=== PATIENT | male | born 1970 | race Asian ===

== ENCOUNTER 2019-12-11 11:30 | Emergency (ER) | payer OTHER ==
[~2019-12-11] VITALS: Ht 165.1 cm; Wt 56.8 kg
[2019-12-11] MEDS: SODIUM CHLORIDE 0.9% 1,000 ML IV ONE (12:20)
[2019-12-11 12:36] LABS: BASOPHILS % (AUTO) 0.6 % (0.0-2.0); EOSINOPHILS % (AUTO) 1.3 % (1.0-6.0); HEMATOCRIT 47.8 % (41-53); HEMOGLOBIN 16.1 g/dL (13.5-17.5); LYMPHOCYTES # (AUTO) 2.1 K/uL (1.0-4.8); LYMPHOCYTES % (AUTO) 24.6 % (22.0-44.0); MEAN CORPUSCULAR HEMOGLOBIN 30.9 pg (26.0-34.0); MEAN CORPUSCULAR HGB CONC 33.6 G/dL (31.0-37.0); MEAN CORPUSCULAR VOLUME 92 fL (80-100); MONOCYTES # (AUTO) 0.5 K/uL (0.1-1.0); MONOCYTES % (AUTO) 6.3 % (2.0-9.0); NEUTROPHILS # (AUTO) 5.7 K/uL (1.8-7.7); NEUTROPHILS % (AUTO) 67.2 % (40.0-70.0); PLATELET COUNT (AUTO) 269 K/uL (150-450); RED CELL DISTRIBUTION WIDTH 13.8 % (11.5-14.5)
[2019-12-11 12:42] LABS: CALCIUM, TOTAL 9.9 mg/dL (8.8-10.5); CREATININE 1.58 mg/dL (0.60-1.30); POTASSIUM 4.7 mmol/L (3.5-5.1)
[2019-12-11 12:48] LABS: ALBUMIN 4.4 g/dL (3.4-5.0); TOTAL PROTEIN, SERUM 8.8 g/dL (6.4-8.2)
[2019-12-11 13:24] VITALS: BP 130/67
== END 2019-12-11 13:36 | disposition home or self-care (01) ==
LOC: EMS 11:32
DX: R11.2 Nausea with vomiting, unspecified (principal); F20.9 Schizophrenia, unspecified; F17.210 Nicotine dependence, cigarettes, uncomplicated
CPT/HCPCS: 36415; 80053; 82962; 83690; 85025; 96360; 99283; J7030

== ENCOUNTER 2020-10-20 14:28 | Emergency (ER) | payer OTHER ==
[~2020-10-20] VITALS: Ht 165.1 cm; Wt 59.1 kg
[2020-10-20] MEDS ORDERED: ONDANSETRON HCL 4 MG TABLET PO ONE (16:15)
[2020-10-20] MEDS ORDERED: KETOROLAC TROMETHAMINE 60 MG/2 ML VIAL IM ONE (16:15)
[2020-10-20 17:10] VITALS: BP 97/60
== END 2020-10-20 17:43 | disposition home or self-care (01) ==
LOC: EMS 14:34
DX: G43.909 Migraine, unspecified, not intractable, without status migrainosus (principal); F17.210 Nicotine dependence, cigarettes, uncomplicated
CPT/HCPCS: 96372; 99283; J1885; Q0162

== ENCOUNTER 2020-10-23 12:49 | Emergency (ER) | payer OTHER ==
[~2020-10-23] VITALS: Ht 172.7 cm; Wt 59.0 kg
[2020-10-23 13:56] LABS: COVID AG,FIA SOURCE NASOPHARYNGEAL
[2020-10-23 14:23] LABS: AMPHET/METH SCREEN,URINE NEGATIVE (NEGATIVE); BARBITURATE SCREEN, URINE NEGATIVE (NEGATIVE); BENZODIAZEPINES SCREEN,URINE NEGATIVE (NEGATIVE); CANNABINOID SCREEN,URINE POSITIVE (NEGATIVE); COCAINE SCREEN,URINE NEGATIVE (NEGATIVE); METHADONE SCREEN, URINE NEGATIVE (NEGATIVE); OPIATE SCREEN,URINE NEGATIVE (NEGATIVE)
[2020-10-23 14:25] LABS: PHENCYCLIDINE SCREEN,URINE NEGATIVE (NEGATIVE)
[2020-10-23 14:34] LABS: BASOPHILS % (AUTO) 0.5 % (0.0-2.0); EOSINOPHILS % (AUTO) 1.3 % (1.0-6.0); HEMATOCRIT 44.7 % (41-53); LYMPHOCYTES # (AUTO) 1.6 K/uL (1.0-4.8); LYMPHOCYTES % (AUTO) 16.1 % (22.0-44.0); MEAN CORPUSCULAR HEMOGLOBIN 31.3 pg (26.0-34.0); MEAN CORPUSCULAR HGB CONC 33.6 G/dL (31.0-37.0); MEAN CORPUSCULAR VOLUME 93 fL (80-100); MONOCYTES # (AUTO) 0.7 K/uL (0.1-1.0); MONOCYTES % (AUTO) 6.6 % (2.0-9.0); NEUTROPHILS # (AUTO) 7.6 K/uL (1.8-7.7); NEUTROPHILS % (AUTO) 75.5 % (40.0-70.0); PLATELET COUNT (AUTO) 364 K/uL (150-450); RED CELL DISTRIBUTION WIDTH 13.4 % (11.5-14.5)
[2020-10-23 14:45] LABS: ANION GAP 10 mmol/L (8-16); CARBON DIOXIDE 26 mmol/L (22-29); CHLORIDE 105 mmol/L (98-107); CREATININE 1.38 mg/dL (0.60-1.30); GLOMERULAR FILTR. RATE CALC 55 mL/min (>60); GLUCOSE,RANDOM 98 mg/dL (70-110); POTASSIUM 3.8 mmol/L (3.5-5.1); SODIUM SERUM 141 mmol/L (136-145); UREA NITROGEN, BLOOD 16 mg/dL (7-18)
[2020-10-23 14:51] LABS: ALANINE AMINOTRANSFERASE 44 U/L (12-78); ALBUMIN 4.1 g/dL (3.4-5.0); ALKALINE PHOSPHATASE 86 U/L (46-116); ASPARTATE AMINOTRANSFERASE 30 U/L (15-37); BILIRUBIN,TOTAL 0.4 mg/dL (0.1-1.0); LIPASE 114 U/L (73-393); TOTAL PROTEIN, SERUM 7.8 g/dL (6.4-8.2)
[2020-10-23] MEDS ORDERED: PB/HYOSCY/ATR/SCOP/LIDO/MAALOX 55 ML BOTTLE PO ONE (15:15)
[2020-10-23 15:17] VITALS: BP 131/75
== END 2020-10-23 15:56 | disposition home or self-care (01) ==
LOC: EMS 12:49
DX: R10.9 Unspecified abdominal pain (principal); R11.2 Nausea with vomiting, unspecified; Z20.822 Contact with and (suspected) exposure to COVID-19; F17.210 Nicotine dependence, cigarettes, uncomplicated
CPT/HCPCS: 36415; 80053; 80307; 83690; 85025; 87426; 99283; G0480

== ENCOUNTER 2020-10-24 12:48 | Emergency (ER) | payer OTHER ==
[~2020-10-24] VITALS: Ht 167.6 cm; Wt 72.7 kg
[2020-10-24] MEDS ORDERED: ACETAMINOPHEN 500 MG TABLET PO ONE (13:30)
[2020-10-24 14:00] VITALS: BP 124/82
== END 2020-10-24 14:17 | disposition home or self-care (01) ==
LOC: EMS 12:48
DX: R51.9 Headache, unspecified (principal); F20.9 Schizophrenia, unspecified; F17.210 Nicotine dependence, cigarettes, uncomplicated
CPT/HCPCS: 99283

== ENCOUNTER 2021-01-19 15:03 | Emergency (ER) | payer OTHER ==
[~2021-01-19] VITALS: Ht 165.1 cm; Wt 59.1 kg
[2021-01-19 17:43] LABS: BASOPHILS % (AUTO) 0.6 % (0.0-2.0); EOSINOPHILS % (AUTO) 5.1 % (1.0-6.0); HEMATOCRIT 41.2 % (41-53); HEMOGLOBIN 13.7 g/dL (13.5-17.5); LYMPHOCYTES # (AUTO) 2.3 K/uL (1.0-4.8); LYMPHOCYTES % (AUTO) 37.9 % (22.0-44.0); MEAN CORPUSCULAR HEMOGLOBIN 30.9 pg (26.0-34.0); MEAN CORPUSCULAR HGB CONC 33.3 G/dL (31.0-37.0); MEAN CORPUSCULAR VOLUME 93 fL (80-100); MONOCYTES # (AUTO) 0.7 K/uL (0.1-1.0); MONOCYTES % (AUTO) 11.3 % (2.0-9.0); NEUTROPHILS # (AUTO) 2.7 K/uL (1.8-7.7); NEUTROPHILS % (AUTO) 45.1 % (40.0-70.0); PLATELET COUNT (AUTO) 322 K/uL (150-450); RED BLOOD CELL COUNT(AUTO) 4.44 MIL/uL (4.50-5.90); RED CELL DISTRIBUTION WIDTH 12.9 % (11.5-14.5)
[2021-01-19 17:52] LABS: ANION GAP 7 mmol/L (8-16); CALCIUM, TOTAL 8.6 mg/dL (8.8-10.5); CARBON DIOXIDE 26 mmol/L (22-29); CHLORIDE 106 mmol/L (98-107); CREATININE 1.24 mg/dL (0.60-1.30); GLOMERULAR FILTR. RATE CALC > 60 mL/min (>60); GLUCOSE,RANDOM 95 mg/dL (70-110); POTASSIUM 3.8 mmol/L (3.5-5.1); SODIUM SERUM 139 mmol/L (136-145); UREA NITROGEN, BLOOD 19 mg/dL (7-18)
[2021-01-19 17:58] LABS: ALANINE AMINOTRANSFERASE 25 U/L (12-78); ALBUMIN 3.3 g/dL (3.4-5.0); ALKALINE PHOSPHATASE 104 U/L (46-116); ASPARTATE AMINOTRANSFERASE 20 U/L (15-37); BILIRUBIN,TOTAL 0.4 mg/dL (0.1-1.0); TOTAL PROTEIN, SERUM 6.9 g/dL (6.4-8.2)
[2021-01-19 18:12] LABS: COVID AG,FIA SOURCE NASOPHARYNGEAL
[2021-01-19] MEDS ORDERED: OLANZapine 5 MG TABLET PO ONE (18:15)
[2021-01-19 18:44] VITALS: BP 126/60
== END 2021-01-19 19:12 | disposition home or self-care (01) ==
LOC: EMS 15:18
DX: F20.9 Schizophrenia, unspecified (principal); R06.00 Dyspnea, unspecified; F17.210 Nicotine dependence, cigarettes, uncomplicated; Z20.822 Contact with and (suspected) exposure to COVID-19
CPT/HCPCS: 36415; 71045; 80053; 84484; 85025; 87426; 93005; 99285; G0480

== ENCOUNTER 2021-03-22 16:54 | Inpatient (IN) | payer MEDICAID, OTHER ==
[~2021-03-22] VITALS: Ht 165.1 cm; Wt 52.0 kg
[2021-03-22 19:13] LABS: COVID AG,FIA SOURCE NASOPHARYNGEAL
[2021-03-22 19:16] LABS: BASOPHILS % (AUTO) 0.7 % (0.0-2.0); EOSINOPHILS % (AUTO) 4.2 % (1.0-6.0); HEMATOCRIT 41.8 % (41-53); HEMOGLOBIN 13.4 g/dL (13.5-17.5); LYMPHOCYTES # (AUTO) 2.2 K/uL (1.0-4.8); LYMPHOCYTES % (AUTO) 30.8 % (22.0-44.0); MEAN CORPUSCULAR HEMOGLOBIN 30.3 pg (26.0-34.0); MEAN CORPUSCULAR HGB CONC 32.1 G/dL (31.0-37.0); MEAN CORPUSCULAR VOLUME 94 fL (80-100); MONOCYTES # (AUTO) 0.7 K/uL (0.1-1.0); MONOCYTES % (AUTO) 9.5 % (2.0-9.0); NEUTROPHILS # (AUTO) 3.9 K/uL (1.8-7.7); NEUTROPHILS % (AUTO) 54.8 % (40.0-70.0); PLATELET COUNT (AUTO) 405 K/uL (150-450); RED BLOOD CELL COUNT(AUTO) 4.44 MIL/uL (4.50-5.90); RED CELL DISTRIBUTION WIDTH 14.5 % (11.5-14.5)
[2021-03-22 19:21] LABS: AMPHET/METH SCREEN,URINE NEGATIVE (NEGATIVE); BARBITURATE SCREEN, URINE NEGATIVE (NEGATIVE); BENZODIAZEPINES SCREEN,URINE NEGATIVE (NEGATIVE); CANNABINOID SCREEN,URINE NEGATIVE (NEGATIVE); COCAINE SCREEN,URINE NEGATIVE (NEGATIVE); METHADONE SCREEN, URINE NEGATIVE (NEGATIVE); OPIATE SCREEN,URINE NEGATIVE (NEGATIVE)
[2021-03-22 19:29] LABS: PHENCYCLIDINE SCREEN,URINE NEGATIVE (NEGATIVE)
[2021-03-22 19:33] LABS: ANION GAP 8 mmol/L (8-16); CALCIUM, TOTAL 8.3 mg/dL (8.8-10.5); CARBON DIOXIDE 27 mmol/L (22-29); CHLORIDE 108 mmol/L (98-107); CREATININE 1.24 mg/dL (0.60-1.30); GLOMERULAR FILTR. RATE CALC > 60 mL/min (>60); GLUCOSE,RANDOM 93 mg/dL (70-110); POTASSIUM 3.8 mmol/L (3.5-5.1); SODIUM SERUM 143 mmol/L (136-145); UREA NITROGEN, BLOOD 13 mg/dL (7-18)
[2021-03-22 19:45] LABS: ALANINE AMINOTRANSFERASE 31 U/L (12-78); ALBUMIN 3.3 g/dL (3.4-5.0); ALKALINE PHOSPHATASE 101 U/L (46-116); ASPARTATE AMINOTRANSFERASE 31 U/L (15-37); BILIRUBIN,TOTAL 0.2 mg/dL (0.1-1.0)
[2021-03-22] MEDS ORDERED: HALOPERIDOL 5 MG TABLET PO ONE (19:45)
[2021-03-22] MEDS ORDERED: IBUPROFEN 600 MG TABLET PO ONE (19:45)
[2021-03-22] MEDS ORDERED: LORazepam 2 MG TABLET PO ONE (19:45)
[2021-03-22] MEDS ORDERED: DiphenhydrAMINE HCL 50 MG CAPSULE PO ONE (19:45)
[2021-03-22 22:42] LABS: APPEARANCE,URINE CLOUDY (CLEAR); BILIRUBIN,URINE NEGATIVE (NEGATIVE); GLUCOSE, URINE (UA) NEGATIVE (NEGATIVE); KETONES,URINE TRACE mg/dL (NEGATIVE); LEUKOCYTE ESTERASE ,URINE NEGATIVE (NEGATIVE); NITRATE,URINE NEGATIVE (NEGATIVE); OCCULT BLOOD,URINE NEGATIVE (NEGATIVE); PROTEIN,URINE NEGATIVE (NEGATIVE)
[2021-03-23] MEDS: LORazepam 2 MG TABLET PO PRN ×2 (01:01→02:23)
[2021-03-23 01:03] VITALS: BP 106/82
[2021-03-23] MEDS: ZOLPIDEM TARTRATE 10 MG TABLET PO PRN (01:06)
[2021-03-23 01:10] LABS: CHOL/HDL RATIO 2.8 (4.2-7.3); CHOLESTEROL 147 mg/dL (131-200); HDL CHOLESTEROL 52 mg/dL (40-60); LDL CHOL (CALC.) 66 mg/dL (0-130); TRIGLYCERIDES 146 mg/dL (15-150)
[2021-03-23 02:20] VITALS: BP 140/82
[2021-03-23] MEDS: HALOPERIDOL 5 MG TABLET PO PRN (02:23)
[2021-03-23] MEDS ORDERED: ALBUTEROL SULFATE HFA 90 MCG/PUFF 8 GM INHALER IH PRN (09:45)
[2021-03-23] MEDS ORDERED: PETROLATUM,WHITE 28 GM JELLY TP PRN (09:45)
[2021-03-23] MEDS ORDERED: CloNIDine HCL 0.1 MG TABLET PO PRN (09:45)
[2021-03-23] MEDS ORDERED: GuaiFENesin/D-METHORPHAN [SUGAR-FREE] 200-20MG/10 ML SYRUP UDCUP PO PRN (09:45)
[2021-03-23] MEDS ORDERED: LOPERAMIDE HCL 2 MG CAPSULE PO PRN (09:45)
[2021-03-23] MEDS ORDERED: IBUPROFEN 400 MG TABLET PO PRN (09:45)
[2021-03-23] MEDS ORDERED: MAGNESIUM HYDROXIDE SUSPENSION 30 ML UDCUP PO PRN (09:45)
[2021-03-23] MEDS ORDERED: ONDANSETRON HCL 4 MG TABLET PO PRN (09:45)
[2021-03-23] MEDS ORDERED: NICOTINE 14 MG/24 HOUR PATCH TD PRN (09:45)
[2021-03-23] MEDS ORDERED: DOCUSATE SODIUM 100 MG CAPSULE PO PRN (09:45)
[2021-03-23] MEDS ORDERED: MAG HYDROX/AL HYDROX/SIMETH ES 30 ML SUSPENSION UDCUP PO PRN (09:45)
[2021-03-23] MEDS: OLANZapine 5 MG TABLET PO SCH ×2 (14:05→20:57)
[2021-03-23 16:00] VITALS: BP 120/78
[2021-03-24 09:03] VITALS: BP 125/91
[2021-03-24] MEDS: OLANZapine 5 MG TABLET PO SCH ×2 (10:24→20:12)
[2021-03-24 16:00] VITALS: BP 100/69
[2021-03-25 08:32] VITALS: BP 99/59
[2021-03-25] MEDS: OLANZapine 5 MG TABLET PO SCH ×2 (10:14→20:12)
[2021-03-25 16:00] VITALS: BP 95/56
[2021-03-26] MEDS: OLANZapine 5 MG TABLET PO SCH ×2 (08:12→21:28)
[2021-03-26 09:53] VITALS: BP 102/66
[2021-03-26 16:18] VITALS: BP 99/69
[2021-03-26] MEDS: ZOLPIDEM TARTRATE 10 MG TABLET PO PRN (21:28)
[2021-03-26] MEDS: LORazepam 2 MG TABLET PO PRN (21:28)
[2021-03-26] MEDS: HALOPERIDOL 5 MG TABLET PO PRN (23:57)
[2021-03-27 02:19] VITALS: BP 125/76
[2021-03-27] MEDS: LORazepam 2 MG TABLET PO PRN ×2 (02:59→20:55)
[2021-03-27 08:49] VITALS: BP 110/74
[2021-03-27] MEDS: OLANZapine 5 MG TABLET PO SCH ×2 (09:01→20:54)
[2021-03-27 13:15] VITALS: BP 116/73
[2021-03-27] MEDS: ACETAMINOPHEN 325 MG TABLET PO PRN (13:15)
[2021-03-27 16:12] VITALS: BP 103/69
[2021-03-27] MEDS: HALOPERIDOL 5 MG TABLET PO PRN (17:33)
[2021-03-27] MEDS: ZOLPIDEM TARTRATE 10 MG TABLET PO PRN (20:55)
[2021-03-28 04:00] VITALS: BP 110/65
[2021-03-28 09:00] VITALS: BP 93/61
[2021-03-28] MEDS: OLANZapine 5 MG TABLET PO SCH ×2 (09:34→20:56)
[2021-03-28 13:46] VITALS: BP 148/100
[2021-03-28 15:05] LABS: COVID AG,FIA SOURCE NASOPHARYNGEAL
[2021-03-28 16:00] VITALS: BP 116/75
[2021-03-28] MEDS: HALOPERIDOL 5 MG TABLET PO PRN (17:28)
[2021-03-28] MEDS: LORazepam 2 MG TABLET PO PRN (20:56)
[2021-03-28] MEDS: ZOLPIDEM TARTRATE 10 MG TABLET PO PRN (20:56)
[2021-03-29] MEDS: OLANZapine 5 MG TABLET PO SCH ×2 (09:00→20:59)
[2021-03-29 09:22] VITALS: BP 104/54
[2021-03-29 16:37] VITALS: BP 101/69
[2021-03-29] MEDS: ZOLPIDEM TARTRATE 10 MG TABLET PO PRN (23:39)
[2021-03-30] MEDS: OLANZapine 5 MG TABLET PO SCH ×2 (08:35→20:25)
[2021-03-30 10:21] VITALS: BP 91/60
[2021-03-30] MEDS: HALOPERIDOL 5 MG TABLET PO PRN (17:00)
[2021-03-30] MEDS: LORazepam 2 MG TABLET PO PRN (20:25)
[2021-03-31] MEDS: OLANZapine 5 MG TABLET PO SCH ×2 (08:38→20:40)
[2021-03-31 10:03] VITALS: BP 98/63
[2021-03-31 16:48] VITALS: BP 140/79
[2021-03-31] MEDS: HALOPERIDOL 5 MG TABLET PO PRN (17:46)
[2021-03-31] MEDS: LORazepam 2 MG TABLET PO PRN (20:40)
[2021-03-31] MEDS: ZOLPIDEM TARTRATE 10 MG TABLET PO PRN (20:40)
[2021-04-01] MEDS: HALOPERIDOL 5 MG TABLET PO PRN (00:06)
[2021-04-01 08:00] VITALS: BP 107/81
[2021-04-01] MEDS: OLANZapine 5 MG TABLET PO SCH ×2 (10:11→20:14)
[2021-04-01 16:13] VITALS: BP 120/83
[2021-04-02] MEDS: OLANZapine 5 MG TABLET PO SCH ×2 (10:29→20:06)
[2021-04-02 12:50] VITALS: BP 102/64
[2021-04-02 16:00] VITALS: BP 102/69
[2021-04-03] MEDS: OLANZapine 5 MG TABLET PO SCH ×2 (10:07→20:17)
[2021-04-03 10:14] VITALS: BP 132/69
[2021-04-03 16:34] VITALS: BP 105/60
[2021-04-03 19:47] LABS: COVID AG,FIA SOURCE NASAL SWAB
[2021-04-04 08:28] VITALS: BP 128/79
[2021-04-04] MEDS: OLANZapine 5 MG TABLET PO SCH ×2 (10:22→20:39)
[2021-04-04 16:17] VITALS: BP 124/77
[2021-04-05] MEDS: OLANZapine 5 MG TABLET PO SCH ×2 (09:16→21:57)
[2021-04-05 10:18] VITALS: BP 98/61
[2021-04-05 16:32] VITALS: BP 99/65
[2021-04-05] MEDS: HALOPERIDOL 5 MG TABLET PO PRN (17:13)
[2021-04-05] MEDS: LORazepam 2 MG TABLET PO PRN (21:57)
[2021-04-06 09:38] VITALS: BP 100/64
[2021-04-06] MEDS: OLANZapine 5 MG TABLET PO SCH ×2 (09:43→20:01)
[2021-04-06 17:14] VITALS: BP 99/69
[2021-04-07 01:13] VITALS: BP 129/73
[2021-04-07 08:27] VITALS: BP 124/95
[2021-04-07] MEDS: OLANZapine 5 MG TABLET PO SCH ×2 (09:39→20:59)
[2021-04-07 16:00] VITALS: BP 117/70
[2021-04-08 00:05] VITALS: BP 128/75
[2021-04-08] MEDS: HALOPERIDOL 5 MG TABLET PO PRN (00:19)
[2021-04-08] MEDS: ZOLPIDEM TARTRATE 10 MG TABLET PO PRN (00:19)
[2021-04-08 01:59] VITALS: BP 102/62
[2021-04-08] MEDS: LORazepam 2 MG TABLET PO PRN (01:59)
[2021-04-08] MEDS: OLANZapine 5 MG TABLET PO SCH ×2 (09:26→20:19)
[2021-04-08 09:56] VITALS: BP 93/53
[2021-04-08 16:00] VITALS: BP 98/65
[2021-04-09] MEDS: OLANZapine 5 MG TABLET PO SCH ×2 (08:03→20:31)
[2021-04-09 08:50] VITALS: BP 107/57
[2021-04-09 17:02] VITALS: BP 98/68
[2021-04-10 00:50] VITALS: BP 109/68
[2021-04-10] MEDS: ZOLPIDEM TARTRATE 10 MG TABLET PO PRN (00:53)
[2021-04-10] MEDS: LORazepam 2 MG TABLET PO PRN ×2 (04:18→09:28)
[2021-04-10] MEDS: OLANZapine 5 MG TABLET PO SCH ×2 (08:10→20:17)
[2021-04-10] MEDS: HALOPERIDOL 5 MG TABLET PO PRN ×2 (08:11→12:47)
[2021-04-10 09:14] LABS: COVID AG,FIA SOURCE NASAL SWAB
[2021-04-10 09:39] VITALS: BP 132/75
[2021-04-10 16:22] VITALS: BP 99/65
[2021-04-11 01:01] VITALS: BP 105/70
[2021-04-11] MEDS: ZOLPIDEM TARTRATE 10 MG TABLET PO PRN (01:01)
[2021-04-11] MEDS: HALOPERIDOL 5 MG TABLET PO PRN (01:01)
[2021-04-11 09:00] VITALS: BP 104/74
[2021-04-11] MEDS: OLANZapine 5 MG TABLET PO SCH ×2 (09:29→20:14)
[2021-04-11 16:00] VITALS: BP 98/58
[2021-04-12 00:10] VITALS: BP 120/87
[2021-04-12] MEDS: LORazepam 2 MG TABLET PO PRN ×2 (00:14→08:49)
[2021-04-12] MEDS: ZOLPIDEM TARTRATE 10 MG TABLET PO PRN (00:16)
[2021-04-12 04:48] VITALS: BP 113/74
[2021-04-12] MEDS: OLANZapine 5 MG TABLET PO SCH ×2 (08:49→20:42)
[2021-04-12 09:26] VITALS: BP 102/65
[2021-04-12 16:27] VITALS: BP 99/69
[2021-04-13] MEDS: LORazepam 2 MG TABLET PO PRN (04:14)
[2021-04-13 04:16] VITALS: BP 107/74
[2021-04-13] MEDS: OLANZapine 5 MG TABLET PO SCH ×2 (08:10→20:10)
[2021-04-13 08:51] VITALS: BP 134/84
[2021-04-13 16:44] VITALS: BP 116/95
[2021-04-14] MEDS: LORazepam 2 MG TABLET PO PRN ×2 (05:08→21:37)
[2021-04-14 05:10] VITALS: BP 133/91
[2021-04-14 08:35] VITALS: BP 133/81
[2021-04-14] MEDS: OLANZapine 5 MG TABLET PO SCH ×2 (08:36→21:37)
[2021-04-14 12:40] VITALS: BP 136/78
[2021-04-14] MEDS: ACETAMINOPHEN 325 MG TABLET PO PRN (12:40)
[2021-04-14 16:17] VITALS: BP 129/77
[2021-04-14] MEDS: HALOPERIDOL 5 MG TABLET PO PRN (17:37)
[2021-04-15] MEDS: OLANZapine 5 MG TABLET PO SCH (08:29)
[2021-04-15 09:14] VITALS: BP 124/76
[2021-04-15] MEDS ORDERED: OLAN5TAB52 PO ×2 (12:44)
== END 2021-04-15 15:25 | disposition home or self-care (01) | DRG 750 ==
LOC: EMS 16:55 → 3EI 20:10
PROVIDERS: ADMIT Psychiatry & Neurology Child & Adolescent Psychiatry; ATTEND Psychiatry & Neurology Child & Adolescent Psychiatry
DX: F20.0 Paranoid schizophrenia (principal); E44.0 Moderate protein-calorie malnutrition; D64.9 Anemia, unspecified; F12.90 Cannabis use, unspecified, uncomplicated; F15.10 Other stimulant abuse, uncomplicated; F17.210 Nicotine dependence, cigarettes, uncomplicated; M79.672 Pain in left foot; F41.9 Anxiety disorder, unspecified; M79.671 Pain in right foot; Z20.822 Contact with and (suspected) exposure to COVID-19; Z68.1 Body mass index [BMI] 19.9 or less, adult; Z59.00 Homelessness unspecified
CPT/HCPCS: 80053; 80061; 81003; 85025; 87081; 99285; G0480; Q0162